=== PATIENT | female | born 1960 | race Caucasian/White ===

== ENCOUNTER 2019-03-03 05:43 | Day surgery (SDC) | payer OTHER ==
[~2019-03-03] VITALS: Ht 154.9 cm; Wt 53.5 kg
[~2019-03-03 05:43] MED LIST: AMBIEN5 MG PO; COZAAR50 MG PO; LIPITOR80 MG PO; LUMIGAN 0.01%2.5 ML EACH EYE; LYRICA50 MG PO; NORVASC10 MG PO; REQUIP5 MG PO; TIROSINT88 MCG PO
[2019-03-03 06:26] LABS: MCH 29.7 pg (26.0-34.0); MCHC 34.9 g/dL (31.0-37.0); MCV 85.1 fL (80.0-100.0); MEAN PLATELET VOLUME 10.1 fL (7.4-10.4); RBC 5.05 10x6/uL (4.00-5.40); RDW 13.4 % (11.5-14.5); WBC 8.8 10x3/uL (4.8-10.8)
[2019-03-03 07:10] VITALS: BP 159/76; Ht 154.9 cm; Wt 53.5 kg
[2019-03-03] MEDS ORDERED: HYDROCODON-ACE1 EA10 PO (08:38)
--- NOTE | 2019-03-03 10:14 | NUR ---
PATIENT AMBULATING AROUND ROOM WITHOUT DIZZINESS OR UNSTEADINESS. DC INSTRUCTIONS REVIEWED WITH PATIENT AND SPOUSE, PATIENT DISCHARGED HOME VIA WHEELCHAIR TO PRIVATE VEHICLE WITH SPOUSE
--- NOTE | 2019-03-07 11:59 | OP ---
PATIENT NAME: ASTER IVY MEDICAL RECORD: [id number] :62 LOCATION:[facility] ADMISSION DATE: SURGEON: LIVAN ESCALANTE MD DATE OF OPERATION: 03/03/2019 PREOPERATIVE DIAGNOSIS: Trigger thumb, right thumb. POSTOPERATIVE DIAGNOSIS: Trigger thumb, right thumb. PROCEDURE: Right trigger thumb release - A1 mihir incision. SURGEON: Livan Escalante MD ANESTHESIA: General laryngeal mask airway. OPERATIVE SUMMARY IN DETAIL: After obtaining the appropriate preoperative orthopedic surgery consent as well as anesthetic consultation, evaluation, and clearance, the patient was brought to the operating room and placed on the operating table in supine position. After general laryngeal mask airway was administered, tourniquet was placed about the proximal aspect of the right upper extremity. Right upper extremity was then prepped and draped in routine sterile fashion. The arm was elevated and exsanguinated. Tourniquet was inflated up to 250 mmHg. An incision was made at the base of the thumb directly over the mihir of the thumb flexor tendon. This was taken down. The A1 mihir was found to be extremely thickened. It was released in its entirety, was prolonged. After release of the entire A1 mihir, the thumb tendon was examined and found to have attritional changes as well as some calcific tendinitis; however, there was no full thickness tearing. At this point, the incision was irrigated and closed with 4-0 Prolene in routine interrupted fashion. The area was locally infiltrated with 0.25% Marcaine plain. Sterile dressings were applied. Tourniquet was deflated. The patient was awakened, taken to the recovery room in stable condition. All final needle and sponge counts were correct. TRANSINT:[id number] Voice Confirmation ID: [id number] DOCUMENT ID: [id number] LIVAN ESCALANTE MD at 1159 CC: [id number] DICTATION DATE: 03/03/19 164 EXPERIENCE DESIGNER: 03/04/19 0257 [facility] 03/03/19 [facility] [address] [place] [address]
== END 2019-03-03 10:14 | disposition home or self-care (01) ==
LOC: D.OPS 05:43 → D.PAN 09:20 → D.OPS 10:14 → D.PAN 12:00
PROVIDERS: Anesthesiology; ATTEND Orthopaedic Surgery
DX: M65.311 Trigger thumb, right thumb (principal)

== ENCOUNTER 2019-12-15 07:50 | Day surgery (SDC) | payer OTHER ==
--- NOTE | 2019-12-13 08:48 | NUR ---
ESQUIVEL NOTE: TEMP 98.1 O2 98% P60 R20 BP 146/74
[2019-12-13 09:21] LABS: HEMATOCRIT 44.8 % (36.0-48.0); HEMOGLOBIN 15.2 g/dL (12-16); MCHC 33.9 g/dL (31.0-37.0); MCV 88.4 fL (80.0-100.0); MEAN PLATELET VOLUME 9.9 fL (7.4-10.4); RBC 5.07 10x6/uL (4.00-5.40); RDW 13.3 % (11.5-14.5); WBC 11.7 10x3/uL (4.8-10.8)
[~2019-12-15] VITALS: Ht 152.4 cm; Wt 54.4 kg
[~2019-12-15 07:50] MED LIST changes: +HYDROCODON-ACE1 EA10 PO
[2019-12-15 08:12] VITALS: BP 149/69; Ht 152.4 cm; Wt 54.4 kg
[2019-12-15] MEDS ORDERED: HYDROCODON-ACE1 EA10 PO (09:16)
--- NOTE | 2019-12-20 09:15 | OP ---
PATIENT NAME: ASTER IVY MEDICAL RECORD: [id number] :62 LOCATION:[facility] ADMISSION DATE: SURGEON: LIVAN ESCALANTE MD DATE OF OPERATION: 12/15/2019 PREOPERATIVE DIAGNOSIS: Left long finger trigger finger. POSTOPERATIVE DIAGNOSIS: Left long finger trigger finger. PROCEDURE: A1 mihir release, trigger finger release. SURGEON: Livan Escalante MD ANESTHESIA: General. INTRAOPERATIVE COMPLICATIONS: None. SUMMARY OF PATHOLOGIC FINDINGS: The patient had a very tight A1 mihir of the left long finger trigger finger consistent with diagnosis of trigger finger. OPERATIVE SUMMARY IN DETAIL: After obtaining the appropriate preoperative orthopedic surgery consent as well as anesthetic consultation, evaluation and clearance, the patient was brought to the operating room and placed on the operating table in supine position. After general laryngeal mask airway was administered, tourniquet was placed on the proximal aspect of the left upper extremity. Left upper extremity was then prepped and draped in routine sterile fashion. Appropriate timeout was taken and agreed upon by all given the patient's unique identifiers. The arm was elevated and exsanguinated, tourniquet was inflated to 250 mmHg. Mid palmar incision was made exactly over the A1 mihir of the left long finger. Dissection was carried down to the A1 mihir and it was released in its entirety. Having completed this, the tendon was identified and had some attritional changes, but no full thickness tearing. The wound was irrigated and closed with 4-0 Prolene. The area was locally infiltrated with 0.25% Marcaine plain. Sterile dressings were applied. Tourniquet was deflated. The patient was awakened and taken to recovery room in stable condition. All final needle and sponge counts were correct. TRANSINT:[id number] Voice Confirmation ID: [id number] DOCUMENT ID: [id number] LIVAN ESCALANTE MD at 0915 CC: [id number] DICTATION DATE: 12/19/19707 FURNITURE BUILDER: 12/19/191811 [facility] 12/15/19 [facility] [address] [place] [id number]
== END 2019-12-15 10:50 | disposition home or self-care (01) ==
LOC: D.OPS 07:50 → D.PAN 10:00 → D.OPS 10:00 → D.PAN 10:30 → D.OPS 10:50 → D.PAN 12:30 → D.OPS 13:00 → D.PAN 13:20
PROVIDERS: Anesthesiology; ATTEND Orthopaedic Surgery
DX: M65.321 Trigger finger, right index finger (principal); E07.9 Disorder of thyroid, unspecified

== ENCOUNTER 2020-01-26 05:22 | Day surgery (SDC) | payer MEDICARE, OTHER ==
[~2020-01-26] VITALS: Ht 152.4 cm; Wt 54.4 kg
[2020-01-26 07:00] VITALS: BP 140/74; Ht 152.4 cm; Wt 54.4 kg
[2020-01-26 07:36] LABS: HEMATOCRIT 42.8 % (36.0-48.0); HEMOGLOBIN 14.6 g/dL (12-16); MCH 29.6 pg (26.0-34.0); MCHC 34.1 g/dL (31.0-37.0); MCV 86.8 fL (80.0-100.0); RBC 4.93 10x6/uL (4.00-5.40); RDW 13.7 % (11.5-14.5); WBC 10.4 10x3/uL (4.8-10.8)
[2020-01-26] MEDS ORDERED: HYDROCODON-ACE1 EA10 PO (07:54)
--- NOTE | 2020-01-26 09:45 | NUR ---
0940 IV D/C'D WITH CANNULA INTACT, PRESSURE HELD AND DRSG PLACED. DISCHARGE INSTRUCTIONS GIVEN TO PT AND . BOTH VERBALIZED AN UNDERSTANDING. PTS 3RD TRIGGER FINGER RELEASE. DISCHARGED IN STABLE CONDITION AND W/O C/O
--- NOTE | 2020-01-30 08:46 | OP ---
PATIENT NAME: ASTER IVY MEDICAL RECORD: [id number] :62 LOCATION:[facility] ADMISSION DATE: SURGEON: LIVAN ESCALANTE MD DATE OF OPERATION: 01/26/2020 PREOPERATIVE DIAGNOSES: 1. Trigger finger, right-hand index finger. 2. Trigger finger, right-hand long finger. POSTOPERATIVE DIAGNOSES: 1. Trigger finger, right-hand index finger. 2. Trigger finger, right-hand long finger. PROCEDURE: 1. A1 mihir release of the right-hand index finger. 2. A1 mihir release of the right-hand long finger. SURGEON: Livan Escalante MD ANESTHESIA: General. INTRAOPERATIVE COMPLICATIONS: None. SUMMARY OF PATHOLOGIC FINDINGS: The patient had very tight A1 mihir with some excoriation of the flexor tendon sheath; however, no full-thickness tearing was noted. OPERATIVE SUMMARY IN DETAIL: After obtaining the appropriate preoperative orthopedic surgery consent as well as anesthetic consultation, evaluation and clearance, the patient was brought to the operating room and placed on the operating table in supine position. After adequate general laryngeal mask airway was administered, tourniquet was placed about the proximal aspect from the right upper extremity. The right upper extremity was then prepped and draped in routine sterile fashion. The arm was elevated and exsanguinated, tourniquet was inflated to 350 mmHg. After the appropriate timeout was taken and agreed upon by all given the patient's unique identifiers. An incision was made at the base of the A1 mihir index finger. Dissection was carried down very carefully to avoid the digital nerves. A1 mihir was identified in its entirety and incised in its entirety. Tendon was then evaluated and findings as noted above. Next, the incision was elongated to include the long finger and again, the dissection was carried down to the A1 mihir without any damage to the digital nerves. An A1 mihir was then incised in its entirety. Again, the tendon was inspected and found to have excoriated changes, but no full thickness tearing. Wounds were then irrigated and closed with 4-0 Prolene. The area was locally infiltrated with 0.25% Marcaine plain. Sterile dressings were applied. Tourniquet was deflated. The patient was awakened and taken to recovery room in stable condition. All final needle and sponge counts were correct. TRANSINT:[id number] Voice Confirmation ID: [id number] DOCUMENT ID: [id number] OPERATIVE REPORT [id number] ASTER IVY MD, LIVAN BETANCOURT at 0846 CC: [id number] DICTATION DATE: 01/26/20834 CHAIRMAN CEO: 01/26/[address] [facility] 01/26/20 [place] [id number] [place] [id number]
== END 2020-01-26 09:45 | disposition home or self-care (01) ==
LOC: D.OPS 05:22
PROVIDERS: Anesthesiology; ATTEND Orthopaedic Surgery
DX: M65.321 Trigger finger, right index finger (principal); M65.331 Trigger finger, right middle finger